=== PATIENT | female | born 1970 | race Caucasian/White ===

== ENCOUNTER 2018-09-08 05:22 | Inpatient (IN) ==
[2018-09-08] MEDS ORDERED: Metoprolol Tartrate 25 MG Tablet PO ONE (05:40)
[2018-09-08] MEDS ORDERED: Chlorhexidine Gluconate 2% 1 Pack (2 Cloths) TOPICAL ONE (05:40)
[2018-09-08] MEDS ORDERED: Sodium Chlor 0.9% Inj 500 ML IV.SIG SCH (06:00)
[2018-09-08] MEDS ORDERED: ceFAZolin Inj 3,000 MG in Sodium Chlor 0.9% Inj 100 ML IV.SIG SCH (07:00)
[2018-09-08] MEDS ORDERED: ceFAZolin 2 GM Premix Inj 2 GM/50 ML PIGGYBACK IV.SIG ONE (09:54)
[2018-09-08] MEDS ORDERED: Bupivacaine/Epinephrine Inj 0.25% 50 ML Vial ONE (09:55)
[2018-09-08] MEDS ORDERED: ceFAZolin 1 GM Premix Inj 1 GM/50 ML FROZ.PIGGY IV.SIG ONE (09:55)
[2018-09-08] MEDS ORDERED: Lidocaine PF 1% Inj 5 ML Syringe OTHER ONE (10:08)
[2018-09-08] MEDS ORDERED: Glycopyrrolate Inj 1 MG/5 ML Syringe IV.PUSH ONE (10:08)
[2018-09-08] MEDS ORDERED: Neostigmine Inj 5 MG/5 ML Syringe IV.PUSH ONE (10:08)
[2018-09-08] MEDS ORDERED: diphenhydrAMINE HCl 12.5 MG/5 ML Elixir UDC PO PRN (12:03)
[2018-09-08] MEDS ORDERED: Post-op Orders (for Pharmacy) OTHER STA (12:03)
[2018-09-08] MEDS ORDERED: Acetaminophen-HYDROcodone 325/7.5 Liq 15 ML UDC PO PRN (12:03)
[2018-09-08] MEDS ORDERED: Naloxone Inj 0.4 MG/ML Vial IV.PUSH PRN (12:05)
[2018-09-08] MEDS ORDERED: Morphine Inj 30 MG/30 ML PCA.VIAL PCA PRN (12:05)
[2018-09-08] MEDS ORDERED: KCL 20 mEq/NACL 0.45% Inj 1,000 ML IV.CONT SCH (12:15)
[2018-09-08] MEDS ORDERED: fentaNYL Citrate Inj 100 MCG/2 ML Ampul ONE (12:27)
[2018-09-08] MEDS ORDERED: KCL 20 mEq/NACL 0.45% Inj 1,000 ML ONE (12:43)
[2018-09-08] MEDS ORDERED: Morphine Inj 30 MG/30 ML PCA.VIAL PCA ONE (12:43)
[2018-09-08] MEDS: KCL 20 mEq/NACL 0.45% Inj 1,000 ML IV.CONT SCH ×2 (12:55→21:45)
--- NOTE | 2018-09-08 15:22 | MP ---
cc: Ronan Dick MD DATE OF OPERATION: 09/08/2018 PREOPERATIVE DIAGNOSIS: Morbid obesity with a BMI of 40. POSTOPERATIVE DIAGNOSIS: Morbid obesity with a BMI of 40. PROCEDURE PERFORMED: Laparoscopic Gricelda-en-Y gastric bypass, 100 cm Gricelda limb, antegastric, antecolic. SURGEON: Ronan Dick MD FIELD OPERATOR: Wesley Terrell MD. Dr. Terrell's assistance was necessary due to complexity of the operation. Dr. Terrell assisted with manipulation and exposure during the procedure. The hardware sales assistant provided by [employer] was utilized managing the camera. ANESTHESIA: General endotracheal anesthesia. ESTIMATED BLOOD LOSS: 20 mL FINDINGS: Fatty liver. SPECIMENS: None. COMPLICATIONS: None. PREOPERATIVE DIAGNOSIS: ?? POSTOPERATIVE DIAGNOSIS: ?? PROCEDURE: Laparoscopic Gricelda-en-Y gastric bypass, 100-cm Gricelda limb, antegastric antecolic. SURGEON: Ronan Dick MD ANESTHESIA: General endotracheal anesthesia. OPERATION: The patient was brought to the operating room and placed on the operating table in supine position, bilateral sequential inflation device placed on lower extremities, general anesthesia instituted, antibiotics initiated. The abdomen was prepped and draped sterilely. A point 18-cm distal to the xiphoid in the midline anesthetized with 0.25% Marcaine with epinephrine. The skin incision was made, a 5-mm OptiView port placed under direct vision and pneumoperitoneum was created. Under direct vision a 5-mm left upper quadrant, 12-mm left upper quadrant, 12-mm right upper quadrant and 5-mm right upper quadrant ports were placed. Prior to placement of all ports, the skin and peritoneum were anesthetized with 0.25% Marcaine with epinephrine. The patient's omentum was lifted into the upper abdomen. It was split down the middle to create a path for the Gricelda limb. The ligament of Treitz was identified, a point 40 cm distal identified. The small bowel was divided in this region using an Adamson Flex stapler vascular load reinforced with SeamGuard. The distal segment was brought up for a distance of 100 cm, enterotomy created in this region, enterotomy in the biliopancreatic limb and a [id number] stapled jejunojejunostomy created in the usual manner. The mesenteric defect at the jejunojejunostomy was closed with 2-0 Surgidac suture in a running manner. The patient was placed in reverse Trendelenburg position with the left side up. The Kindra-Flex retractor was placed. The left lobe of the liver was retracted. The angle of His was taken down bluntly, a point 5 cm distal to the GE junction along the lesser curve identified, the lesser sac entered using blunt dissection. The stomach was partitioned horizontally using an Adamson-Flex stapler blue load, an additional firing taken directed towards the angle of His to completely divide the stomach. A gastrotomy created in the new stomach, enterotomy in the Gricelda limb and gastrojejunostomy created, stomal opening of 2 cm. An 18-[place] orogastric tube was placed across the anastomosis, the defect then closed in two layers of running 2-0 Vicryl. Prior to placement of the second layer, methylene blue instilled through the orogastric tube. There was no evidence of extravasation. Evicel was then placed over the gastrojejunostomy, jejunojejunostomy and all staple lines. The operative field inspected and hemostasis was present. The CO2 was released, all ports were removed. All skin incisions were closed with 4-0 Monocryl. The abdominal wall was cleaned and a sterile dressing placed. The patient was awakened and taken to the recovery room. MD ALEJANDRA Sarmiento/patricia/ruth , 12:09 PM , 12:15 PM
[2018-09-08] MEDS ORDERED: Enoxaparin Inj 40 MG/0.4 ML Syringe SQ SCH (16:00)
[2018-09-09] MEDS: KCL 20 mEq/NACL 0.45% Inj 1,000 ML IV.CONT SCH ×2 (04:37→13:54)
[2018-09-09 07:44] LABS: Baso % (Auto) 0.2 % (0.0-2.0); Eos % (Auto) 0.2 % (0.0-4.0); Hematocrit 36.9 % (35.0-46.0); Hemoglobin 12.5 gm/dL (11.6-15.3); Lymph # (Auto) 1.7 th/mm3 (1.0-4.8); Lymph % (Auto) 14.1 % (9.0-44.0); Mean Corpuscular HGB Conc 33.8 % (32.0-36.0); Mean Corpuscular Hemoglobin 28.6 pg (27.0-34.0); Mean Corpuscular Volume 84.6 fL (80.0-100.0); Mean Platelet Volume 9.2 fL (7.0-11.0); Mono # (Auto) 0.8 th/mm3 (0.0-0.9); Mono % (Auto) 6.8 % (0.0-8.0); Neut # (Auto) 9.6 th/mm3 (1.8-7.7); Neut % (Auto) 78.7 % (16.0-70.0); Platelet Count 239 th/mm3 (150-450); Red Blood Count 4.36 mil/mm3 (4.00-5.30); Red Cell Distribution Width 13.9 % (11.6-17.2); White Blood Count 12.2 th/mm3 (4.0-11.0)
[2018-09-09 08:10] LABS: Anion Gap 7 meq/L (5-15); Blood Urea Nitrogen 7 mg/dL (7-18); Calcium 7.6 mg/dL (8.5-10.1); Carbon Dioxide 24.3 meq/L (21.0-32.0); Chloride 109 meq/L (98-107); Glomerular Filtration Rate Greater Than 89 mL/min (>89); Glucose,Random 98 mg/dL (74-106); Magnesium 2.2 mg/dL (1.5-2.5); Potassium 3.7 meq/L (3.5-5.1); Sodium 140 meq/L (136-145)
[2018-09-09 08:31] VITALS: O2SAT 97
[2018-09-09 12:38] VITALS: BP 159/91; PULSE 68; RESP 18; TEMP 99
--- NOTE | 2018-09-09 14:50 | P.PNGS ---
Subjective Patient reports: tolerating liquids well, voiding w/o difficulty (Pt denies SOB , dyspnea, or chest pain. Ambulating ad vinay. ), flatus Physical Exam Vital signs: Vital Signs 09/08/18 15:00 09/08/18 16:00 09/08/18 17:00 Temperature 97.6 F 98 F Pulse Rate 74 78 79 Respiratory Rate 15 16 19 Blood Pressure 110/65 135/67 129/75 Pulse Oximetry 96 96 96 09/08/18 20:00 09/08/18 23:52 09/09/18 04:00 Temperature 98.4 F 98.5 F 98.5 F Pulse Rate 76 98 H 72 Respiratory Rate 17 17 17 Blood Pressure 124/68 115/57 L 140/69 Pulse Oximetry 97 94 L 94 L 09/09/18 07:57 09/09/18 08:00 09/09/18 12:00 Temperature 98.4 F 99.0 F Pulse Rate 66 68 Respiratory Rate 17 18 Blood Pressure 141/74 H 159/91 H Pulse Oximetry 96 97 97 Intake & Output 09/08/18 09/09/18 09/09/18 18:59 06:59 18:59 Intake Total 1399 / 1399 3001 / 3001 400 / 400 Output Total 20 / 20 Balance 1379 / 1379 3001 / 3001 400 / 400 Weight 103.5 kg Intake: IV 609 / 609 2641 / 2641 400 / 400 Potassium Chlor 20 mEq/NACL 0. 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 Rx#:[id number] LR 1000 mL Inj 1,000 ML @ 30 750 / 750 mls/hr IV.SIG .Q24H [facility]MIE Rx#: [id number] Ancef Inj 1,000 MG In NS Inj 100 / 100 100 / 100 100 / 100 100 ML @ 200 mls/hr IV.SIG Q8H [facility] Rx#:[id number] Flagyl 500 MG Inj 100 ML @ 100 200 / 200 100 / 100 mls/hr IV.SIG Q8H [facility]MIE Rx#: [id number] Oral 90 / 90 360 / 360 Anesthesia Amount 700 / 700 Output: Urine 0 / 0 Estimated Blood Loss 20 / 20 Other: # Voids 3 - Constitutional no acute distress - Routine Respiratory Exam Present: CTA bilaterally - Routine Cardiovascular Exam Present: RRR, S1, S2 - Routine Abdominal Exam Present: soft Comments: normal post operative tenderness, op sites with scant erythema WNL for postsurgical findings. Dressings C/D/I - Routine Neurological Exam Present: oriented X3 Results - Labs 09/09/18 05:47 09/09/18 05:47 Laboratory Results - last 24 hr 09/09/18 09/09/18 05:47 05:47 WBC 12.2 H RBC 4.36 Hgb 12.5 Hct 36.9 MCV 84.6 MCH 28.6 MCHC 33.8 RDW 13.9 Plt Count 239 MPV 9.2 Neut % (Auto) 78.7 H Lymph % (Auto) 14.1 [place] % (Auto) 6.8 Eos % (Auto) 0.2 Baso % (Auto) 0.2 Neut # (Auto) 9.6 H Lymph # (Auto) 1.7 [place] # (Auto) 0.8 Eos # (Auto) 0.0 Baso # (Auto) 0.0 WBC Differential . Differential Comment Auto diff final Sodium 140 Potassium 3.7 Chloride 109 H Carbon Dioxide 24.3 Anion Gap 7 BUN 7 Creatinine 0.59 Estimated GFR Greater than 89 Random Glucose 98 Calcium 7.6 L Magnesium 2.2 Assessment and Plan - Plan POD #1 Laproscopic RNY Tolerating 30 q 30 advance to 60 ml q 30 d/c BOTTOM SANDER Continue IS/SCD's D/C IVF Discharge home today Code Status: full Discussed Condition With: patient, family
== END 2018-09-09 16:53 | disposition home or self-care (01) ==
LOC: HSDI 05:22 → N07 17:14
PROVIDERS: ADMIT Surgery; ATTEND Surgery